=== PATIENT | male | born 1935 | race Native Hawaiian/Other Pacific Islander ===

== ENCOUNTER 2018-07-12 17:05 | Inpatient (IN) | payer MEDICARE, MEDICAID ==
[2018-07-12 18:35] LABS: BASO # 0.1 K/uL (0.0-0.2); EOS # 0.3 K/uL (0.0-0.7); EOS % 5.1 % (0.0-4.0); HEMOGLOBIN 12.5 g/dL (12.0-18.0); LYMPH # 1.9 K/uL (1.0-4.3); LYMPH % 27.9 % (20.0-40.0); MEAN CELL VOLUME 81.8 fL (80.0-94.0); MEAN CORPUSCULAR HEMOGLOBIN 25.7 pg (27.0-31.0); MEAN CORPUSCULAR HGB CONC 31.5 g/dL (33.0-37.0); MEAN PLATELET VOLUME 8.8 fL (7.2-11.7); MONO # 0.5 K/uL (0.0-0.8); MONO % 6.9 % (0.0-10.0); NEUT % 59.1 % (50.0-75.0); NRBC % 0.2 % (0.0-2.0); RBC 4.84 Mil/uL (4.40-5.90); RED CELL DISTRIBUTION WIDTH 13.1 % (11.5-14.5); WHITE BLOOD COUNT 6.7 K/uL (4.8-10.8)
[2018-07-12 18:44] LABS: URINE BILIRUBIN NEGATIVE (NEGATIVE); URINE BLOOD 1+ (NEGATIVE); URINE CLARITY Hazy (Clear); URINE COLOR Yellow (YELLOW); URINE GLUCOSE (UA) 2+ mg/dL (Normal); URINE LEUKOCYTE ESTERASE 2+ Leu/uL (Negative); URINE PROTEIN 1+ mg/dL (NEGATIVE); URINE UROBILINOGEN NORMAL mg/dL (0.2-1.0)
[2018-07-12 18:55] LABS: ALB/GLOB RATIO 1.3 (1.0-2.1); ALBUMIN 4.3 g/dL (3.5-5.0); ALT/SGPT 14 U/L (21-72); AST/SGOT 28 U/L (17-59); BLOOD UREA NITROGEN 20 mg/dL (9-20); CALCIUM 8.6 mg/dl (8.6-10.4); GFR NON-AFRICAN AMERICAN > 60
--- NOTE | 2018-07-12 19:03 | C.PDOC ---
History Of Present Illness 83 y/o male presents to the ED, sent in by Dr. King. Patient has a PMHx of BPH and is due for cystoscopy tomorrow with Dr. Meghann Verdugo. He was sent in for medical clearance including cardiac stress test and echo in the AM. Patient a ppears comfortable on arrival, has no complaints at all. Denies any chest pain or SOB but did complain of palpitations.. Time Seen by Provider: 07/12/18 18:27 Chief Complaint (Nursing): Male Genitourinary History Per: Patient History/Exam Limitations: no limitations Onset/Duration Of Symptoms: Hrs Current Symptoms Are (Timing): Still Present Past Medical History Reviewed: Historical Data, Nursing Documentation, Vital Signs Vital Signs: Last Vital Signs Temp 97.4 F L 07/12/18 17:23 Pulse 60 07/12/18 17:45 Resp 16 07/12/18 17:45 BP 133/70 07/12/18 17:45 Pulse Ox 99 07/12/18 17:45 - Medical History PMH: HTN, Hypercholesterolemia Family History: States: No Known Family Hx - Social History Hx Alcohol Use: No Hx Substance Use: No - Immunization History Hx Tetanus Toxoid Vaccination: No Hx Influenza Vaccination: No Hx Pneumococcal Vaccination: No Review Of Systems Constitutional: Negative for: Fever Cardiovascular: Negative for: Chest Pain Respiratory: Negative for: Cough, Shortness of Breath Gastrointestinal: Negative for: Abdominal Pain Neurological: Negative for: Weakness, Dizziness Physical Exam - Physical Exam Appears: Non-toxic, No Acute Distress Skin: Warm, Dry Head: Atraumatic, Normacephalic Eye(s): bilateral: Normal Inspection, PERRL, EOMI Nose: Normal Neck: Normal ROM Chest: Symmetrical Cardiovascular: Rhythm Regular, No Murmur Respiratory: Normal Breath Sounds, No Accessory Muscle Use, No Rhonchi, No Wheezing Gastrointestinal/Abdominal: Soft, No Tenderness, No Distention Extremity: Bilateral: Atraumatic, Normal Color And Temperature Neurological/Psych: Oriented x3, Normal Speech ED Course And Treatment - Laboratory Results Result Diagrams: 07/12/18 18:18 07/12/18 18:18 Lab Results: Total Bilirubin 0.7 mg/dL (0.2-1.3) 07/12/18 18:18 AST 28 U/L (17-59) 07/12/18 18:18 ALT 14 U/L (21-72) L 07/12/18 18:18 Alkaline Phosphatase 60 U/L (38-126) 07/12/18 18:18 Total Protein 7.6 g/dL (6.3-8.3) 07/12/18 18:18 Albumin 4.3 g/dL (3.5-5.0) 07/12/18 18:18 Globulin 3.2 gm/dL (2.2-3.9) 07/12/18 18:18 Albumin/Globulin Ratio 1.3 (1.0-2.1) 07/12/18 18:18 Urine Color Yellow (YELLOW) 07/12/18 18:18 Urine Clarity Hazy (Clear) 07/12/18 18:18 Urine pH 6.0 (5.0-8.0) 07/12/18 18:18 Ur Specific [place] 1.018 (1.003-1.030) 07/12/18 18:18 Urine Protein 1+ mg/dL (NEGATIVE) H 07/12/18 18:18 Urine Glucose (UA) 2+ mg/dL (Normal) H 07/12/18 18:18 Urine Ketones Negative mg/dL (NEGATIVE) 07/12/18 18:18 Urine Blood 1+ (NEGATIVE) H 07/12/18 18:18 Urine Nitrate Negative (NEGATIVE) 07/12/18 18:18 Urine Bilirubin Negative (NEGATIVE) 07/12/18 18:18 Urine Urobilinogen Normal mg/dL (0.2-1.0) 07/12/18 18:18 Ur Leukocyte Esterase 2+ Jg/uL (Negative) H 07/12/18 18:18 Urine WBC (Auto) 9 /hpf (0-5) H 07/12/18 18:18 Urine RBC (Auto) 7 /hpf (0-3) H 07/12/18 18:18 Lab Interpretation: Normal ECG: Interpreted By Me ECG Rhythm: Sinus Rhythm (with LVH) ECG Interpretation: No Acute Changes O2 Sat by Pulse Oximetry: 99 (RA) Pulse Ox Interpretation: Normal - Physician Consult Information Outcome Of Conversation: Case discussed with Dr King and Dr Do. Patient to be admitted for medical clearance and cardiac evaluation prior to surgery Medical Decision Making Medical Decision Making: Plan: Labs ordered for medical clearance. Disposition Counseled Patient/Family Regarding: Studies Performed - Disposition Disposition: HOSPITALIZED Disposition Time: 19:59 Condition: STABLE - POA Present On Arrival: None - Clinical Impression Clinical Impression: Palpitations, BPH (benign prostatic hyperplasia) - Scribe Statement The provider has reviewed the documentation as recorded by the Yulissaiblucas Blackburn Provider Attestation: All medical record entries made by the Jesus were at my direction and personally dictated by me. I have reviewed the chart and agree that the record accurately reflects my personal performance of the history, physical exam, medical decision making, and the department course for this patient. I have also personally directed, reviewed, and agree with the discharge instructions and disposition.
[2018-07-13 07:15] LABS: INR 1.2; PROTHROMBIN TIME 12.6 SECONDS (9.7-12.2)
[2018-07-13] MEDS: (Novolin R) Insulin Human Regular 100 units/ml vial SC SCH ×4 (08:09→22:07)
[2018-07-13] MEDS ORDERED: Caffeine Citrated **INJ** 20 MG/ML IV ONE (08:22)
[2018-07-13] MEDS: Enoxaparin 30 mg Syringe SC SCH (10:21)
--- NOTE | 2018-07-13 11:22 | CARD ---
APPROVED REPORT Date of service: 07/12/2018 EKG Measurement Heart [id number] <Conclusion> Normal sinus rhythm Voltage criteria for left ventricular hypertrophy Abnormal ECG
--- NOTE | 2018-07-13 15:16 | CARD ---
APPROVED REPORT Date of service: 07/13/2018 EXAM: Two-dimensional and M-mode echocardiogram with Doppler and color Doppler. Other Information Quality : GoodRhythm : INDICATION Palpitations 2D DIMENSIONS IVSd1.4 (0.7-1.1cm)LVDd3.9 (3.9-5.9cm) PWd1.3 (0.7-1.1cm)LA Naafqw72 (18-58mL) LVDs2.5 (2.5-4.0cm)FS (%) 36.6 % LVEF (%)67.0 (>50%)LVEF (Subramanian's)62.09 % M-Mode DIMENSIONS Left Atrium (MM)3.96 (2.5-4.0cm)IVSd0.92 (0.7-1.1cm) Aortic Root3.56 (2.2-3.7cm)LVDd4.88 (4.0-5.6cm) Aortic Cusp Exc.2.24 (1.5-2.0cm)PWd0.81 (0.7-1.1cm) FS (%) 38 %LVDs3.04 (2.0-3.8cm) LVEF (%)68 (>50%) Mitral Valve MV E Ovhmtwff68.7cm/sMV A Yoaganlp94.8cm/sE/A ratio0.7 TDI Lateral E' Peak V6.74cm/sMedial E' Peak V6.48cm/sE/Lateral E'8.4 E/Medial E'8.8 Tricuspid Valve TR Peak Yayysadr850yl/sTR Peak [id number] <Conclusion> normal size l,vra & RV. la is mildly dilated. mild concnetric lvh with normal wall motion,systolic & diastolic function with lvef of 60-65%. normal aortic,mitral,tv & pv. mild tr,trace mr,pi with normal pulmonary systolic pressures of 29 mm of hg. normal size aortic root & ivc. trivial posterior pericrdial effusion noted.
[2018-07-13 16:24] VITALS: RESP 20
--- NOTE | 2018-07-13 17:25 | CP.PCM.CON ---
History of Present Illness - History of Present Illness History of Present Illness: Pre Op cardiac risk assessment: Cystoscopy and related procedures and urological surgery under General Anaesthesia 83 y/o male Patient has a PMHx of BPH and is due for cystoscopy/Urological surgerry with Dr. Meghann Verdugo. He was sent in for medical clearance including cardiac stress test and echo in the AM. Patient appears comfortable on arrival, has no complaints at all. Denies any chest pain or SOB but did complain of palpitations.. Chief Complaint (Nursing): Male Genitourinary History Per: Patient History/Exam Limitations: no limitations Onset/Duration Of Symptoms: Hrs Current Symptoms Are (Timing): Still Present Past Medical History Reviewed: Historical Data, Nursing Documentation, Vital Signs Vital Signs: Last Vital Signs Temp 97.4 F L 07/12/18 17:23 Pulse 60 07/12/18 17:45 Resp 16 07/12/18 17:45 BP 133/70 07/12/18 17:45 Pulse Ox 99 07/12/18 17:45 - Medical History PMH: HTN, Hypercholesterolemia Family History: States: No Known Family Hx - Social History Hx Alcohol Use: No Hx Substance Use: No - Immunization History Hx Tetanus Toxoid Vaccination: No Hx Influenza Vaccination: No Hx Pneumococcal Vaccination: No Review Of Systems Constitutional: Negative for: Fever Cardiovascular: Negative for: Chest Pain Respiratory: Negative for: Cough, Shortness of Breath Gastrointestinal: Negative for: Abdominal Pain Neurological: Negative for: Weakness, Dizziness Physical Exam - Physical Exam Appears: Non-toxic, No Acute Distress Skin: Warm, Dry Head: Atraumatic, Normacephalic Eye(s): bilateral: Normal Inspection, PERRL, EOMI Nose: Normal Neck: Normal ROM Chest: Symmetrical Cardiovascular: Rhythm Regular, No Murmur Respiratory: Normal Breath Sounds, No Accessory Muscle Use, No Rhonchi, No Wheezing Gastrointestinal/Abdominal: Soft, No Tenderness, No Distention Extremity: Bilateral: Atraumatic, Normal Color And Temperature Neurological/Psych: Oriented x3, Normal Speech Past Patient History - Past Medical History & Family History Past Medical History?: No - Past Social History Smoking Status: Never Smoked - CARDIAC Hx Hypercholesterolemia: Yes Hx Hypertension: Yes - ENDOCRINE/METABOLIC Hx Diabetes Mellitus Type 2: Yes - MUSCULOSKELETAL/RHEUMATOLOGICAL Hx Falls: No - GENITOURINARY/GYNECOLOGICAL Other/Comment: Ritter catheter - PSYCHIATRIC Hx Substance Use: No - SURGICAL HISTORY Hx Surgeries: Yes Other/Comment: elbow tumor - ANESTHESIA Hx Anesthesia: Yes Hx Anesthesia Reactions: No Hx Malignant Hyperthermia: No Has any member of the family had a problem w/ anesthesia?: No Meds Allergies/Adverse Reactions: Allergies Allergy/AdvReac Type Severity Reaction Status Date / Time No Known Allergies Allergy Verified 07/12/18 17:28 - Medications Medications: Current Medications Amlodipine Besylate (Norvasc) 5 mg PO DAILY [facility] Atenolol (Tenormin) 50 mg PO DAILY [facility] Enoxaparin Sodium (Lovenox) 30 mg SC DAILY [facility] Last Admin: 07/13/18 10:21 Dose: Not Given Famotidine (Pepcid) 20 mg PO HS [facility] Last Admin: 07/13/18 10:21 Dose: Not Given Finasteride (Proscar) 5 mg PO DAILY [facility] Influenza Virus Vaccine (Flucelvax Quad [id number] Syr) 60 mcg IM .ONCE ONE Stop: 07/15/18 10:01 Insulin Human Regular (Novolin R) 0 unit SC [facility]; Protocol Last Admin: 07/13/18 11:57 Dose: Not Given Lisinopril (Zestril) 10 mg PO DAILY [facility] Pneumococcal Polyvalent Vaccine (Pneumovax 23 Vaccine) 0.5 ml IM .ONCE ONE Stop: 07/15/18 10:01 Rosuvastatin Calcium (Crestor) 10 mg PO HS [facility] Tamsulosin HCl (Flomax) 0.4 mg PO BID [facility] Last Admin: 07/13/18 10:21 Dose: Not Given Results - Vital Signs Recent Vital Signs: Last Vital Signs Temp 98.2 F 07/13/18 16:00 Pulse 64 07/13/18 16:00 Resp 20 07/13/18 16:00 BP 143/68 07/13/18 16:00 Pulse Ox 98 07/13/18 16:00 - Labs Result Diagrams: 07/12/18 18:18 07/12/18 18:18 Labs: Laboratory Results - last 24 hr 07/12/18 07/12/18 07/12/18 18:18 18:18 18:18 WBC 6.7 RBC 4.84 Hgb 12.5 Hct 39.6 MCV 81.8 MCH 25.7 L MCHC 31.5 L RDW 13.1 Plt Count 207 MPV 8.8 Neut % (Auto) 59.1 Lymph % (Auto) 27.9 [place] % (Auto) 6.9 Eos % (Auto) 5.1 H Baso % (Auto) 1.0 Neut # (Auto) 4.0 Lymph # (Auto) 1.9 [place] # (Auto) 0.5 Eos # (Auto) 0.3 Baso # (Auto) 0.1 PT INR APTT Sodium 138 Potassium 3.9 Chloride 101 Carbon Dioxide 27 Anion Gap 14 BUN 20 Creatinine 1.0 Est GFR ( Amer) > 60 Est GFR (Non-Af Amer) > 60 POC Glucose (mg/dL) Random Glucose 186 H Calcium 8.6 Total Bilirubin 0.7 AST 28 ALT 14 L Alkaline Phosphatase 60 Total Protein 7.6 Albumin 4.3 Globulin 3.2 Albumin/Globulin Ratio 1.3 Urine Color Yellow Urine Clarity Hazy Urine pH 6.0 Ur Specific [place] 1.018 Urine Protein 1+ H Urine Glucose (UA) 2+ H Urine Ketones Negative Urine Blood 1+ H Urine Nitrate Negative Urine Bilirubin Negative Urine Urobilinogen Normal Ur Leukocyte Esterase 2+ H Urine WBC (Auto) 9 H Urine RBC (Auto) 7 H 07/12/18 07/13/18 07/13/18 21:44 06:13 06:30 WBC RBC Hgb Hct MCV MCH MCHC RDW Plt Count MPV Neut % (Auto) Lymph % (Auto) [place] % (Auto) Eos % (Auto) Baso % (Auto) Neut # (Auto) Lymph # (Auto) [place] # (Auto) Eos # (Auto) Baso # (Auto) PT 12.6 H INR 1.2 APTT 30 Sodium Potassium Chloride Carbon Dioxide Anion Gap BUN Creatinine Est GFR ( Amer) Est GFR (Non-Af Amer) POC Glucose (mg/dL) 178 H 141 H Random Glucose Calcium Total Bilirubin AST ALT Alkaline Phosphatase Total Protein Albumin Globulin Albumin/Globulin Ratio Urine Color Urine Clarity Urine pH Ur Specific [place] Urine Protein Urine Glucose (UA) Urine Ketones Urine Blood Urine Nitrate Urine Bilirubin Urine Urobilinogen Ur Leukocyte Esterase Urine WBC (Auto) Urine RBC (Auto) 07/13/18 11:18 WBC RBC Hgb Hct MCV MCH MCHC RDW Plt Count MPV Neut % (Auto) Lymph % (Auto) [place] % (Auto) Eos % (Auto) Baso % (Auto) Neut # (Auto) Lymph # (Auto) [place] # (Auto) Eos # (Auto) Baso # (Auto) PT INR APTT Sodium Potassium Chloride Carbon Dioxide Anion Gap BUN Creatinine Est GFR ( Amer) Est GFR (Non-Af Amer) POC Glucose (mg/dL) 338 H Random Glucose Calcium Total Bilirubin AST ALT Alkaline Phosphatase Total Protein Albumin Globulin Albumin/Globulin Ratio Urine Color Urine Clarity Urine pH Ur Specific [place] Urine Protein Urine Glucose (UA) Urine Ketones Urine Blood Urine Nitrate Urine Bilirubin Urine Urobilinogen Ur Leukocyte Esterase Urine WBC (Auto) Urine RBC (Auto) Assessment & Plan - Assessment and Plan (Free Text) Assessment: ECHO: Normal EF and no valvular issues Stress test: Normal EKG: Normal This patient assessed as low to moderate cardiac risk for the above mentioned surgeries or procedures No Cardiac restriction for him to go for the surgery
--- NOTE | 2018-07-13 23:32 | CP.PCM.HP ---
Present on Admission - Present on Admission Any Indicators Present on Admission: No Past Patient History - Past Medical History & Family History Past Medical History?: No - Past Social History Smoking Status: Never Smoked - CARDIAC Hx Hypercholesterolemia: Yes Hx Hypertension: Yes - ENDOCRINE/METABOLIC Hx Diabetes Mellitus Type 2: Yes - MUSCULOSKELETAL/RHEUMATOLOGICAL Hx Falls: No - GENITOURINARY/GYNECOLOGICAL Other/Comment: Ritter catheter - PSYCHIATRIC Hx Substance Use: No - SURGICAL HISTORY Hx Surgeries: Yes Other/Comment: elbow tumor - ANESTHESIA Hx Anesthesia: Yes Hx Anesthesia Reactions: No Hx Malignant Hyperthermia: No Has any member of the family had a problem w/ anesthesia?: No Meds Allergies/Adverse Reactions: Allergies Allergy/AdvReac Type Severity Reaction Status Date / Time No Known Allergies Allergy Verified 07/12/18 17:28 Results - Vital Signs Recent Vital Signs: Last Vital Signs Temp 98.2 F 07/13/18 16:00 Pulse 64 07/13/18 16:00 Resp 20 07/13/18 16:00 BP 143/68 07/13/18 16:00 Pulse Ox 98 07/13/18 16:00 - Labs Result Diagrams: 07/12/18 18:18 07/12/18 18:18 Labs: Laboratory Results - last 24 hr 07/13/18 07/13/18 07/13/18 06:13 06:30 11:18 PT 12.6 H INR 1.2 APTT 30 POC Glucose (mg/dL) 141 H 338 H 07/13/18 07/13/18 17:27 20:57 PT INR APTT POC Glucose (mg/dL) 133 H 217 H
--- NOTE | 2018-07-14 05:07 | HP ---
CHIEF COMPLAINT: Palpitation, weakness, dizziness. 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 In his usual state of health, he is ambulatory and independent in activities of daily living. The patient needs to have a procedure as the patient is having palpitation, weakness, dizziness, and occasional chest pain. The patient is hospitalized for cardiac catheterization. The patient denies any nausea or vomiting. He has dyspnea on exertion and occasional chest pain and palpitation, weakness and dizziness. There is no history of polyuria, polydipsia, or polyphagia. There is no history of hematuria or pyuria. He denies any sneezing, itchy eyes, or itchy nose. He denies any hip pain, back pain, or leg pain. He has tingling, numbness, and paraesthesia of the feet. The patient has a Ritter catheter. ALLERGIES: UNKNOWN. CURRENT MEDICATIONS: At home, he is on insulin, Flomax, Pepcid, lisinopril, Lipitor, atenolol, finasteride, and Norvasc. SOCIAL HISTORY: He is ex-smoker, non EtOH user. PHYSICAL EXAMINATION: GENERAL: An elderly male, in no acute distress. VITAL SIGNS: Blood pressure 120/72, pulse 63, respiratory rate 20, temperature 98. SKIN: Senile turgor. No bruises. No purpura. No petechiae. No ecchymosis. HEENT: Atraumatic and normocephalic. Negative pallor. Negative jaundice. Extraocular movements are intact. NECK: Supple. No JVD. No lymph node. No thyromegaly. No carotid bruit. CHEST WALL: Bilateral symmetrical expansion. No tenderness. No deformity. LUNGS: Bilaterally clear. No rales. No rhonchi. CARDIOVASCULAR SYSTEM: PMI in the fifth intercostal space. S1 and S2 are regular. No heave. No thrill. ABDOMEN: Soft, nontender. Bowel sounds are positive. RECTAL: Enlarged prostate. EXTREMITIES: No clubbing, cyanosis, or edema. CENTRAL NERVOUS SYSTEM: Awake, alert, and oriented x3. Cranial nerves II through XII are normal. Power 5/5 x4. Plantars are downgoing. ASSESSMENT: 1. Rule out coronary artery disease. 2. Type 2 diabetes, on insulin. 3. Hypertension. 4. Hyperlipidemia. PLAN: Medical management. Cardiac catheterization. Monitor the patient. Jasper Do MD
[2018-07-14 08:05] VITALS: BP 114/67; PULSE 73; TEMP 97.9; O2SAT 98
[2018-07-14] MEDS: (Novolin R) Insulin Human Regular 100 units/ml vial SC SCH ×2 (08:33→12:33)
[2018-07-14] MEDS: Enoxaparin 30 mg Syringe SC SCH (09:15)
[2018-07-14] MEDS ORDERED: Influenza Vaccine 60 mcg/0.5 mL SYR (4YR UP) IM ONE (12:55)
[2018-07-14] MEDS ORDERED: Pneumococcal 23-Valent Vaccine IM ONE (12:56)
--- NOTE | 2018-07-14 18:07 | CP.PCM.PN ---
Subjective - Date & Time of Evaluation Date of Evaluation: 07/14/18 Time of Evaluation: 11:00 - Subjective Subjective: alert, ambulatory, no pain, no bleeding or distress. Objective - Vital Signs/Intake and Output Vital Signs (last 24 hours): Temp Pulse Resp BP Pulse Ox 97.9 F 73 20 114/67 98 07/14/18 07:00 07/14/18 07:00 07/14/18 07:00 07/14/18 07:00 07/14/18 07:00 Intake and Output: 07/14/18 07/14/18 06:59 18:59 Intake Total 200 Output Total 1500 Balance -1300 - Labs Labs: 07/12/18 18:18 07/12/18 18:18 PT 12.6 SECONDS (9.7-12.2) H 07/13/18 06:30 INR 1.2 07/13/18 06:30 APTT 30 SECONDS (21-34) 07/13/18 06:30 Assessment and Plan - Assessment and Plan (Free Text) Assessment: 83 year old male s/p cysto and fernandez placement admitted, cardiac clearence done by DR King. Patient is alert and orientedx3, no acute pain or distress. Discussed with DR Do, plan to discharge home with fernandez catheter, advised to call DR Verdugo and follow up in the office.
--- NOTE | 2018-07-14 23:08 | CP.PCM.DIS ---
Provider - Provider Date of Admission: 07/12/18 19:57 Attending physician: Jasper Do MD Consults: 07/12/18 22:48 Cardiology Consult Routine Comment: Consulting Provider: Alvaro King Consulting Physician: Alvaro King Reason for Consult: chest pain Time Spent in preparation of Discharge (in minutes): 25 Hospital Course - Lab Results Lab Results: Micro Results 07/12/18 18:18 Urine,Catheterized Urine Culture - Final No Growth (<1,000 CFU/ML) Most Recent Lab Values WBC 6.7 K/uL (4.8-10.8) 07/12/18 18:18 RBC 4.84 Mil/uL (4.40-5.90) 07/12/18 18:18 Hgb 12.5 g/dL (12.0-18.0) 07/12/18 18:18 Hct 39.6 % (35.0-51.0) 07/12/18 18:18 MCV 81.8 fL (80.0-94.0) 07/12/18 18:18 MCH 25.7 pg (27.0-31.0) L 07/12/18 18:18 MCHC 31.5 g/dL (33.0-37.0) L 07/12/18 18:18 RDW 13.1 % (11.5-14.5) 07/12/18 18:18 Plt Count 207 K/uL (130-400) 07/12/18 18:18 MPV 8.8 fL (7.2-11.7) 07/12/18 18:18 Neut % (Auto) 59.1 % (50.0-75.0) 07/12/18 18:18 Lymph % (Auto) 27.9 % (20.0-40.0) 07/12/18 18:18 [place] % (Auto) 6.9 % (0.0-10.0) 07/12/18 18:18 Eos % (Auto) 5.1 % (0.0-4.0) H 07/12/18 18:18 Baso % (Auto) 1.0 % (0.0-2.0) 07/12/18 18:18 Neut # (Auto) 4.0 K/uL (1.8-7.0) 07/12/18 18:18 Lymph # (Auto) 1.9 K/uL (1.0-4.3) 07/12/18 18:18 [place] # (Auto) 0.5 K/uL (0.0-0.8) 07/12/18 18:18 Eos # (Auto) 0.3 K/uL (0.0-0.7) 07/12/18 18:18 Baso # (Auto) 0.1 K/uL (0.0-0.2) 07/12/18 18:18 PT 12.6 SECONDS (9.7-12.2) H 07/13/18 06:30 INR 1.2 07/13/18 06:30 APTT 30 SECONDS (21-34) 07/13/18 06:30 Sodium 138 mmol/L (132-148) 07/12/18 18:18 Potassium 3.9 mmol/L (3.6-5.2) 07/12/18 18:18 Chloride 101 mmol/L (98-107) 07/12/18 18:18 Carbon Dioxide 27 mmol/L (22-30) 07/12/18 18:18 Anion Gap 14 (10-20) 07/12/18 18:18 BUN 20 mg/dL (9-20) 07/12/18 18:18 Creatinine 1.0 mg/dL (0.8-1.5) 07/12/18 18:18 Est GFR ( Amer) > 60 07/12/18 18:18 Est GFR (Non-Af Amer) > 60 07/12/18 18:18 POC Glucose (mg/dL) 173 mg/dL (65-110) H 07/14/18 11:08 Random Glucose 186 mg/dL (75-110) H 07/12/18 18:18 Calcium 8.6 mg/dl (8.6-10.4) 07/12/18 18:18 Total Bilirubin 0.7 mg/dL (0.2-1.3) 07/12/18 18:18 AST 28 U/L (17-59) 07/12/18 18:18 ALT 14 U/L (21-72) L 07/12/18 18:18 Alkaline Phosphatase 60 U/L (38-126) 07/12/18 18:18 Total Protein 7.6 g/dL (6.3-8.3) 07/12/18 18:18 Albumin 4.3 g/dL (3.5-5.0) 07/12/18 18:18 Globulin 3.2 gm/dL (2.2-3.9) 07/12/18 18:18 Albumin/Globulin Ratio 1.3 (1.0-2.1) 07/12/18 18:18 Urine Color Yellow (YELLOW) 07/12/18 18:18 Urine Clarity Hazy (Clear) 07/12/18 18:18 Urine pH 6.0 (5.0-8.0) 07/12/18 18:18 Ur Specific [place] 1.018 (1.003-1.030) 07/12/18 18:18 Urine Protein 1+ mg/dL (NEGATIVE) H 07/12/18 18:18 Urine Glucose (UA) 2+ mg/dL (Normal) H 07/12/18 18:18 Urine Ketones Negative mg/dL (NEGATIVE) 07/12/18 18:18 Urine Blood 1+ (NEGATIVE) H 07/12/18 18:18 Urine Nitrate Negative (NEGATIVE) 07/12/18 18:18 Urine Bilirubin Negative (NEGATIVE) 07/12/18 18:18 Urine Urobilinogen Normal mg/dL (0.2-1.0) 07/12/18 18:18 Ur Leukocyte Esterase 2+ Jg/uL (Negative) H 07/12/18 18:18 Urine WBC (Auto) 9 /hpf (0-5) H 07/12/18 18:18 Urine RBC (Auto) 7 /hpf (0-3) H 07/12/18 18:18 Discharge Plan - Follow Up Plan Condition: STABLE Disposition: HOME/ ROUTINE Instructions: Heart Healthy Diet, How to Care for Your Fernandez Catheter, Male, Benign Prostatic Hyperplasia (Enlarged Prostate) (DC), Fernandez Catheter, Male, Palpitations (DC) Additional Instructions: follow up with DR Verdugo in the office, patient is cleared by DR King for the urology procedure follow up with PMD in 1 week please teach to use leg bag and fernandez care/ will be discharge with fernandez Referrals: Alvaro King MD [Staff Provider] - Jasper Do MD [Staff Provider] - 07/21/18 12:00 pm Hugo Verdugo MD [Staff Provider] -
[2018-07-15] MEDS ORDERED: Pneumococcal 23-Valent Vaccine IM ONE (10:00)
[2018-07-15] MEDS ORDERED: Influenza Vaccine 60 mcg/0.5 mL SYR (4YR UP) IM ONE (10:00)
--- NOTE | 2018-07-16 19:39 | DS ---
DISCHARGE DIAGNOSES: Noncoronary chest pain, diabetes, hypertension, obstructive uropathy with benign prostatic hypertrophy. HOSPITAL COURSE: This is an 83-year-old [place] male with a history of diabetes, hypertension and hyperlipidemia. The patient has obstructive uropathy with prostatic enlargement. He has a Ritter and he is for surgery. The patient underwent cardiac cath. Cardiac cath was negative . VITAL SIGNS: Blood pressure 114/67, pulse 73, respiratory rate 20, temperature 97.9. LABORATORY DATA: Glucose 217 and 155. WBC 8.7, hemoglobin 12.5, hematocrit 39.6, platelets 207. Chemistry is benign. BUN 24, creatinine 1. CONDITION UPON DISCHARGE: Stable. Jasper Do MD
--- NOTE | 2018-07-17 09:11 | CARD ---
APPROVED REPORT Date of service: 07/13/2018 Protocol: LEXISCAN Test Type: LEXISCAN Test Indications: CHEST PAIN Target HR: 138 bpm Resting ECG: NSR W/ NS ST T CHANGES Resting Heart Rate: 68 bpm Resting Blood Pressure: 140/80mmHg submaximum (85%): 117 bpm TEST SUMMARY PREINFSNHYPERV.06:[id number]/80.0. INFUSIONDOSE 100:[id number]/80.0. [id number]/80.0. PROCEDURE Pharmacologic stress testing was performed using 0.4mg per 5ml of regadenoson given intravenously over 7-10 seconds. POST EXERCISE Reason for Termination: Protocol Completed Target HR: No Max HR: 71 bpm 68% of Maximum Predicted HR: 138 bpm Exercise duration: 00:30 min:sec, 0 Stage Exercise capacity: 1.0METs Max Blood Pressure: 140/80mmHg Blood Pressure response to exercise: normal resting BP - appropriate response Heart Rate response to exercise: appropriate Chest Pain: No, none Angina index: 0 Arrhythmia: No, none ST Change: No, none Deviation: 0 mm INTERPRETATION Stress EKG Conclusion: NEGATIVE LEXISCAN STRESS TEST NORMAL BP RESPONSE TO LEXISCAN NUCLEAR STUDIES TO BE READ SEPARATELY EXAM: Myocardial Perfusion STRESS/REST Imaging Protocol The imaging protocol used to acquire images was Stress Tc-99m/rest Tc-99m 1 day Rest Spect myocardial perfusion imaging was performed in supine position 45 minutes following the injection of 32.7 mCi of Tc-99 Myoview. Gated Stress Spect was performed 45 minutes after intravenous 12.8 mCiTc-99 Myoview injection. The images were gated to evaluate regional wall motion and calculate ventricular ejection fraction.Images were reconstructed using backfilter projection method in short horizontal and verticle long axis. Spect slices were generated. RESTING DATA EDV59.59yyIK6.20L/min ESV11.00mlMyocardial Uibq264.00g Av. Heart Rate67.00bpm EF81.00% STRESS DATA EDV58.52jvUQ0.60L/min ESV8.00mlMyocardial Mass96.00g EF86.00% Regional WT score at stress:0.00 Regional WM score at stress:0.00 Summed WT score at stress:0.00 Av. Heart Rate71.00bpmSummed WM score at stress:0.00 LV Perf. Quant 17 Seg. SSS3.00 17 Seg. SRS3.00 17 Seg. SDS0.00 Stress Defect Extent (% LAD)0.00Rest Defect Extent (% LAD)0.00Rev. Defect Extent (% LAD)0.00 Stress Defect Extent (% LCX)40.00Rest Defect Extent (% LCX)33.80Rev. Defect Extent (% LCX)0.00 Stress Defect Extent (% RCA)0.00Rest Defect Extent (% RCA)0.00Rev. Defect Extent (% RCA)0.00 Stress Defect Extent (% CHRISTEL)7.00Rest Defect Extent (% CHRISTEL)5.90Rev. Defect Extent (% CHRISTEL)0.00 IMPRESSION Normal Myocardial Perfusion exercise stress study Left Ventricle LV Function:Left ventricle systolic function is normal. The Ejection Fraction is >70%. Regional Wall Motion:There is normal left ventricular wall motion. Metabolism/Perfusion Defects: There is no stress-induced ischemia noted. There are no perfusion/metabolism defects. Conclusion 1. There is no stress-induced ischemia noted. 2. Left ventricle systolic function is normal. 3. The Ejection Fraction is >70%.
== END 2018-07-14 13:27 | disposition home or self-care (01) | DRG 726 ==
LOC: C.ER 17:05 → C.9E 19:57 → C.6T 20:37
PROVIDERS: ADMIT Internal Medicine; ATTEND Internal Medicine
DX: N40.1 Benign prostatic hyperplasia with lower urinary tract symptoms (principal); N13.8 Other obstructive and reflux uropathy; I25.10 Atherosclerotic heart disease of native coronary artery without angina pectoris; R00.2 Palpitations; E11.9 Type 2 diabetes mellitus without complications; E78.00 Pure hypercholesterolemia, unspecified; I10 Essential (primary) hypertension; E78.5 Hyperlipidemia, unspecified; Z79.4 Long term (current) use of insulin

== ENCOUNTER 2018-07-21 08:54 | Inpatient (IN) | payer MEDICARE, MEDICAID ==
[2018-07-21] MEDS ORDERED: cefTRIAXone 1 gm 1 GM/100 ML BAG IVPB ONE (12:01)
[2018-07-21] MEDS ORDERED: Lidocaine 2% Jelly (Uro-Jet) ONE (12:01)
[2018-07-21] MEDS ORDERED: Iohexol 240 (50 ml) ONE (12:01)
[2018-07-21] MEDS ORDERED: Iohexol 240 200 ML ONE (12:06)
[2018-07-21] MEDS ORDERED: Propofol 10 mg/ml Inj (20 ML) ONE (12:22)
[2018-07-21] MEDS ORDERED: Gentamicin 80 mg in 0.9% NS 160 MG/200 ML BAG IVPB ONE (12:27)
[2018-07-21] MEDS ORDERED: Lidocaine Hydrochloride 5 ML INJ ONE (12:40)
--- NOTE | 2018-07-21 14:15 | PCM.SURG1 ---
Surgeon's Initial Post Op Note - Surgeon's Notes Surgeon: Richard Verdugo Engineer Specialist: none Type of Anesthesia: General LMA Pre-Operative Diagnosis: urinary retention. BPH Operative Findings: same Post-Operative Diagnosis: same Operation Performed: cmg. cgm. cysto. TURP Specimen/Specimens Removed: urine. prostate Estimated Blood Loss: EBL {In ML}: 120 Blood Products Given: N/A Post-Op Condition: Good Date of Surgery/Procedure: 07/21/18 Time of Surgery/Procedure: 02:05
[2018-07-21] MEDS ORDERED: HYDROmorphone 0.5 mg/0.5 ml ISec IVP PRN (14:51)
--- NOTE | 2018-07-21 17:00 | RAD ---
Date of service: 07/21/2018 PROCEDURE: Intraoperative fluoroscopy HISTORY: URINARY RETENTION COMPARISON: Not available TECHNIQUE: Intraoperative fluoroscopy was provided for cystography. Total time of fluoroscopy was 10.7 sec. Cumulative dose was 0.12238 mGy meters squared. FINDINGS: Multiple fluoroscopic spot images are submitted. Films are on file for review. IMPRESSION: Fluoroscopy provided.
[2018-07-21 18:54] VITALS: RESP 20
[2018-07-21] MEDS ORDERED: Oxycodone/Acetaminophen 5/325 mg Tab PO PRN (23:50)
[2018-07-22 07:49] LABS: HEMOGLOBIN 12.4 g/dL (12.0-18.0); MEAN CORPUSCULAR HGB CONC 32.9 g/dL (33.0-37.0); MEAN PLATELET VOLUME 8.8 fL (7.2-11.7); RBC 4.59 Mil/uL (4.40-5.90); RED CELL DISTRIBUTION WIDTH 13.5 % (11.5-14.5)
[2018-07-22 07:55] LABS: WHITE BLOOD COUNT 12.1 K/uL (4.8-10.8)
[2018-07-22 08:03] LABS: BLOOD UREA NITROGEN 14 mg/dL (9-20); CALCIUM 8.6 mg/dl (8.6-10.4); GFR NON-AFRICAN AMERICAN > 60
[2018-07-22] MEDS ORDERED: Glucagon Recombinant 1 mg Inj IM PRN (08:53)
[2018-07-22] MEDS ORDERED: Dextrose 50% SYRINGE Inj (50 ml) IV PRN (08:53)
[2018-07-22] MEDS: cefTRIAXone IV 1 gm in Dextros 50 ML IVPB SCH (10:07)
[2018-07-22] MEDS: (Novolin R) Insulin Human Regular 100 units/ml vial SC SCH ×2 (12:34→21:25)
[2018-07-23] MEDS: (Novolin R) Insulin Human Regular 100 units/ml vial SC SCH ×5 (08:40→21:23)
[2018-07-23] MEDS: cefTRIAXone IV 1 gm in Dextros 50 ML IVPB SCH (10:40)
[2018-07-23] MEDS: AMPicillin 1 GM in Sodium Chloride 0.9% 100 ML IVPB SCH ×3 (13:53→21:17)
--- NOTE | 2018-07-23 22:17 | CP.PCM.HP ---
Present on Admission - Present on Admission Any Indicators Present on Admission: No Past Patient History - Past Medical History & Family History Past Medical History?: Yes - Past Social History Smoking Status: Never Smoked - CARDIAC Hx Cardiac Disorders: Yes Hx Hypercholesterolemia: Yes Hx Hypertension: Yes - ENDOCRINE/METABOLIC Hx Endocrine Disorders: Yes Hx Diabetes Mellitus Type 2: Yes - MUSCULOSKELETAL/RHEUMATOLOGICAL Hx Falls: No - GENITOURINARY/GYNECOLOGICAL Hx Genitourinary Disorders: Yes Hx Prostate Problems: Yes (BPH) Other/Comment: HX: INSERTION URINARY CATHETER FOR RETENTION - PSYCHIATRIC Hx Substance Use: No - SURGICAL HISTORY Hx Surgeries: Yes Other/Comment: HX: LEFT BENIGN ELBOW TUMOR REMOVED - ANESTHESIA Hx Anesthesia: Yes Hx Anesthesia Reactions: No Hx Malignant Hyperthermia: No Meds Allergies/Adverse Reactions: Allergies Allergy/AdvReac Type Severity Reaction Status Date / Time No Known Allergies Allergy Verified 07/12/18 17:28 Results - Vital Signs Recent Vital Signs: Last Vital Signs Temp 99 F 07/23/18 15:45 Pulse 71 07/23/18 15:45 Resp 20 07/23/18 15:45 BP 107/56 L 07/23/18 15:45 Pulse Ox 94 L 07/23/18 15:45 - Labs Result Diagrams: 07/22/18 07:40 07/22/18 07:40 Labs: Laboratory Results - last 24 hr 07/22/18 07/23/18 07/23/18 13:57 06:36 11:53 POC Glucose (mg/dL) 191 H 184 H Hemoglobin A1c 10.1 H
--- NOTE | 2018-07-23 22:18 | CP.PCM.PN ---
Subjective - Date & Time of Evaluation Date of Evaluation: 07/23/18 Time of Evaluation: 13:00 - Subjective Subjective: dictated Objective - Vital Signs/Intake and Output Vital Signs (last 24 hours): Temp Pulse Resp BP Pulse Ox 99 F 71 20 107/56 L 94 L 07/23/18 15:45 07/23/18 15:45 07/23/18 15:45 07/23/18 15:45 07/23/18 15:45 Intake and Output: 07/23/18 07/24/18 18:59 06:59 Intake Total 150 Output Total 1999 Balance -1850 - Medications Medications: Current Medications Amlodipine Besylate (Norvasc) 5 mg PO DAILY [facility] Last Admin: 07/23/18 10:57 Dose: 5 mg Atenolol (Tenormin) 50 mg PO DAILY [facility] Last Admin: 07/23/18 10:39 Dose: 50 mg Dextrose (Dextrose 50% Inj) 0 ml IV STAT PRN; Protocol PRN Reason: Hypoglycemia Protocol Dextrose (Glutose 15) 0 gm PO ONCE PRN; Protocol PRN Reason: Hypoglycemia Protocol Docusate Sodium (Colace) 100 mg PO TID [facility] Last Admin: 07/23/18 17:52 Dose: 100 mg Famotidine (Pepcid) 20 mg PO DAILY [facility] Last Admin: 07/23/18 10:39 Dose: 20 mg Finasteride (Proscar) 5 mg PO DAILY [facility] Last Admin: 07/23/18 10:39 Dose: 5 mg Glucagon (Glucagen Diagnostic Kit) 0 mg IM STAT PRN; Protocol PRN Reason: Hypoglycemia Protocol Dextrose (Dextrose 5% In Water 1000 Ml) 1,000 mls @ 0 mls/hr IV .Q0M PRN; Protocol PRN Reason: Hypoglycemia Protocol Ampicillin 1 gm/ Sodium (Chloride) 100 mls @ 100 mls/hr IVPB Q4H [facility]; Protocol Last Admin: 07/23/18 21:17 Dose: 100 mls/hr Influenza Virus Vaccine (Flucelvax Quad [id number] Syr) 60 mcg IM .ONCE ONE Stop: 07/24/18 14:01 Insulin Human Regular (Novolin R) 0 unit SC ACHS [facility]; Protocol Last Admin: 07/23/18 21:23 Dose: Not Given Lisinopril (Zestril) 10 mg PO DAILY [facility] Last Admin: 07/23/18 10:39 Dose: 10 mg Oxycodone/Acetaminophen (Percocet 5/325 Mg Tab) 1 tab PO Q4H PRN PRN Reason: Pain, moderate (4-7) Stop: 07/24/18 23:51 Last Admin: 07/22/18 10:17 Dose: 1 tab Pneumococcal Polyvalent Vaccine (Pneumovax 23 Vaccine) 0.5 ml IM .ONCE ONE Stop: 07/24/18 14:01 Rosuvastatin Calcium (Crestor) 10 mg PO HS [facility] Last Admin: 07/23/18 21:17 Dose: 10 mg Tamsulosin HCl (Flomax) 0.4 mg PO DAILY [facility] Last Admin: 07/23/18 10:39 Dose: 0.4 mg - Labs Labs: 07/22/18 07:40 07/22/18 07:40
--- NOTE | 2018-07-23 22:20 | CON ---
DATE: 07/21/2018 UROLOGY CONSULTATION REQUESTED BY: Jasper Do MD REASON FOR CONSULTATION: Urinary retention. HISTORY OF PRESENT ILLNESS: The patient is an 83-year-old male with urinary retention. The patient is in otherwise fair health. The patient has history of hypertension. The patient has history of insulin-dependent diabetes mellitus. The patient has history of urinary retention in May. He was hospitalized at [facility] for urinary retention and urinary tract infection. The patient previously was prescribed tamsulosin and finasteride. However, he did not take his medications regularly. Since May, he has taken the medications including tamsulosin 2 times daily and finasteride. The patient had trial of voiding. He subsequently failed a trial of voiding, and he developed urinary retention. The patient subsequently had a urodynamic evaluation. The patient is now admitted for evaluation and therapy. The patient previously was scheduled for outpatient cystoscopy. However, the cystoscopy was postponed pending cardiac evaluation as requested by the anesthesiologist. Last week, the patient underwent cardiology evaluation and was found to be cleared for this procedure, as per his j2ee android developer, Dr. Sabrina King. No recent fever or rigors. No chest pain. No shortness of breath. SOCIAL HISTORY: The patient lives with his and children. The patient does not smoke. The patient was born in [place]. FAMILY HISTORY: There is no family history of prostate cancer. MEDICATIONS: The patient's medications have included atenolol, amlodipine, atorvastatin, finasteride, tamsulosin, insulin, and famotidine. PAST SURGICAL HISTORY: The patient's past surgical history includes left elbow surgery for removal of a benign growth. REVIEW OF SYSTEMS: The patient reports good appetite. No recent weight loss. The patient has normal bowel movements. No blackout, seizure, or strokes. ALLERGIES: NO ALLERGIES. PHYSICAL EXAMINATION: GENERAL: The patient is a well-developed, well-nourished elderly male. The patient is awake and alert. ABDOMEN: Soft, nontender, nondistended. No mass or organomegaly. GENITOURINARY: The urine is cat via the Ritter catheter. Genitalia without inflammation. IMPRESSION: 1. Urinary retention. 2. Prostatic enlargement. 3. Diabetes mellitus. 4. Hypertension. RECOMMENDATIONS: Plan for cystoscopy. Cystogram. Cystometrogram. Possible TURP. Nature of the procedure including risks, benefits, and alternatives have been explained to the patient and his son. Meghann MD Lucina cc: Jasper Do MD
--- NOTE | 2018-07-23 22:29 | OP ---
PROCEDURE DATE: 07/21/2018 UROLOGY OPERATIVE REPORT PREOPERATIVE DIAGNOSES: Urinary retention. Prostatic enlargement. POSTOPERATIVE DIAGNOSES: Urinary retention. Prostatic enlargement. PROCEDURES: Cystometrogram. Cystogram. Cystoscopy. Transurethral resection of prostate. OPERATING SURGEON: Meghann Verdugo MD. DESCRIPTION OF PROCEDURE: Procedure as follows: The patient received perioperative antibiotics. The patient was in supine position. A simple cystometrogram was performed using water manometry. The bladder was filled in increments of 30 mL. Bladder pressure was measured. The patient had the sensation to void at a volume of 90 mL. He developed an increased detrusor pressure greater than 30 cm of water out of 150 mL. Iodinated contrast was instilled into the bladder. Fluoroscopic views were obtained in PA and oblique views. The cystogram demonstrated no evidence of vesicoureteral reflux. There was elevation of the bladder base consistent with prostatic hypertrophy. There was a large intravesical filling defect at the bladder base consistent with prostatic hypertrophy. General anesthesia was administered via laryngeal mask airway. The patient was placed in lithotomy position. The genitalia prepped and draped sterilely. Perioperative antibiotics had been administered. A 22-British cystoscope sheath was introduced under direct vision. Urethra, prostate, and bladder were inspected. FINDINGS: There was noted to be no stricture of the anterior urethra. There was marked prostatic hypertrophy. The prostatic urethra was approximately 6 cm in length. There was a large intravesical middle lobe. There was marked bladder trabeculation. Initially, the ureteral orifices could not be identified due to middle lobe hypertrophy. The cystoscope and sheath were removed. A 26-British continuous flow resectoscope sheath was introduced under direct vision using the visual obturator. Resection of the prostate was performed as follows. The middle lobe was resected. The ureteral orifices could subsequently be identified and was spared. There was a large middle lobe. Subsequently, the anterior roof tissue and the left lateral lobe were resected. The floor tissue was resected as well. Hemostasis was achieved after each section of resection as well as during the resection. The prostate was noted to be vascular. The prostatic chips were removed using the Microvasive evacuator at various points during the resection. The resection included the middle lobe and the left lateral lobe. The right lateral lobe was not resected during this setting. Hemostasis was complete. The ureteral orifices were intact. There were no residual prostatic chips. The resectoscope and sheath were removed. A Ritter catheter was inserted. Bladder irrigation was clear with mild traction applied. The patient was returned to the supine position. The patient was transferred to the recovery room in satisfactory condition. Meghann MD Lucina cc: Jasper Do MD
[2018-07-24] MEDS: AMPicillin 1 GM in Sodium Chloride 0.9% 100 ML IVPB SCH ×5 (01:23→17:50)
--- NOTE | 2018-07-24 02:00 | PN ---
DATE: 07/23/2018 SUBJECTIVE: The patient's urine cultures are positive for Enterococcus faecalis, sensitive to ampicillin. The patient is afebrile. PHYSICAL EXAMINATION: VITAL SIGNS: Blood pressure is 107/56, pulse 71, respiratory rate 20, temperature 99. LUNGS: Clear. ABDOMEN: Soft. CENTRAL NERVOUS SYSTEM: Awake, alert, and oriented x3. ASSESSMENT: 1. Urinary tract infection. 2. Obstructive uropathy, status post cystoscopy. 3. Type 2 diabetes. 4. Hypertension. PLAN: Medical management. Monitor the patient. Jasper Do MD
--- NOTE | 2018-07-24 05:43 | HP ---
CHIEF COMPLAINT: Status post surgery. HISTORY OF PRESENT ILLNESS: This is an 83-year-old Pakistani male with history of type 2 diabetes, hypertension, hyperlipidemia, obstructive uropathy, and the patient underwent urological evaluation, and postoperatively, the patient is admitted. The patient at this point has some hematuria. He has some pain in his Ritter's catheter site with blood-tinged urine. He denies any fever or chills. He has rectal pain. He has perineal pain. He has generalized weakness. He denies any chills or rigor. He denies any nausea or vomiting. He denies any history of polyuria or polydipsia. He had frequency of urination, hesitancy, and hematuria. PAST MEDICAL HISTORY: Type 2 diabetes, hypertension, and hyperlipidemia. SOCIAL HISTORY: Ex-smoker, non-ETOH user. CURRENT MEDICATIONS: At home, he is on Humulin R, Tenormin, Flomax, Zestril, Proscar, Pepcid, Norvasc, and Lipitor. PHYSICAL EXAMINATION: GENERAL: An elderly male. He is complaining of some discharge in the Ritter's catheter site with hematuria. VITAL SIGNS: Blood pressure 107/56, pulse 71, respiratory rate 20, and temperature 99. SKIN: Senile turgor. No bruises. No purpura. HEENT: Atraumatic and normocephalic. Negative pallor. Negative jaundice. Extraocular movements are intact. NECK: Supple. No JVD. No lymph nodes. No thyromegaly. CHEST WALL: Bilateral symmetrical expansion. LUNGS: Clear. CARDIOVASCULAR SYSTEM: S1, S2, regular. ABDOMEN: Soft. The patient has Ritter. EXTREMITIES: No clubbing, cyanosis, or edema. CENTRAL NERVOUS SYSTEM: Awake, alert, and oriented x3. ASSESSMENT: 1. Status post cystoscopy. 2. Type 2 diabetes. 3. Hypertension. 4. Obstructive uropathy. PLAN: Admit. Detailed orders are written. Seen and examined. Jasper Do MD
[2018-07-24] MEDS: (Novolin R) Insulin Human Regular 100 units/ml vial SC SCH ×3 (08:28→17:51)
[2018-07-24] MEDS ORDERED: Magnesium Hydroxide Susp 30 ml UD PO ONE (12:38)
[2018-07-24] MEDS ORDERED: Influenza Vaccine 60 mcg/0.5 mL SYR (4YR UP) IM ONE (14:00)
[2018-07-24] MEDS ORDERED: Pneumococcal 23-Valent Vaccine IM ONE (14:00)
[2018-07-24 14:56] LABS: BASO # 0.1 K/uL (0.0-0.2); BASO % 0.7 % (0.0-2.0); EOS # 0.3 K/uL (0.0-0.7); EOS % 3.4 % (0.0-4.0); HEMOGLOBIN 11.5 g/dL (12.0-18.0); LYMPH # 1.8 K/uL (1.0-4.3); LYMPH % 18.4 % (20.0-40.0); MEAN CELL VOLUME 82.2 fL (80.0-94.0); MEAN CORPUSCULAR HGB CONC 32.9 g/dL (33.0-37.0); MEAN PLATELET VOLUME 9.1 fL (7.2-11.7); MONO # 0.7 K/uL (0.0-0.8); MONO % 7.6 % (0.0-10.0); NEUT # 6.9 K/uL (1.8-7.0); NEUT % 69.9 % (50.0-75.0); RBC 4.25 Mil/uL (4.40-5.90); RED CELL DISTRIBUTION WIDTH 13.6 % (11.5-14.5); WHITE BLOOD COUNT 9.8 K/uL (4.8-10.8)
[2018-07-24 15:08] LABS: BLOOD UREA NITROGEN 15 mg/dL (9-20); CALCIUM 8.2 mg/dl (8.6-10.4); GFR NON-AFRICAN AMERICAN > 60
[2018-07-24 16:24] VITALS: BP 125/69; PULSE 73; TEMP 98.4; O2SAT 98
--- NOTE | 2018-07-24 17:19 | CP.PCM.PN ---
Subjective - Date & Time of Evaluation Date of Evaluation: 07/24/18 Time of Evaluation: 13:00 - Subjective Subjective: patient seen today, comforatable, denies any abdominal pain N/V/, fernandez in draining clear urine Vss and labs reviewed - stable , a febrile Objective - Vital Signs/Intake and Output Vital Signs (last 24 hours): Temp Pulse Resp BP Pulse Ox 98.4 F 73 20 125/69 98 07/24/18 16:00 07/24/18 16:00 07/24/18 16:00 07/24/18 16:00 07/24/18 16:00 Intake and Output: 07/24/18 07/24/18 06:59 18:59 Intake Total 1050 Output Total 1100 Balance -50 - Medications Medications: Current Medications Atenolol (Tenormin) 50 mg PO DAILY [facility]S AT [facility] Last Admin: 07/24/18 10:07 Dose: 50 mg Dextrose (Dextrose 50% Inj) 0 ml IV STAT PRN; Protocol PRN Reason: Hypoglycemia Protocol Dextrose (Glutose 15) 0 gm PO ONCE PRN; Protocol PRN Reason: Hypoglycemia Protocol Docusate Sodium (Colace) 100 mg PO TID [facility] 234 B[facility]S AT [facility] Last Admin: 07/24/18 12:59 Dose: 100 mg Famotidine (Pepcid) 20 mg PO DAILY [facility] 234 B[facility]S AT [facility] Last Admin: 07/24/18 10:07 Dose: 20 mg Finasteride (Proscar) 5 mg PO DAILY [facility] 234 B[facility]S AT [facility] Last Admin: 07/24/18 10:07 Dose: 5 mg Glucagon (Glucagen Diagnostic Kit) 0 mg IM STAT PRN; Protocol PRN Reason: Hypoglycemia Protocol Dextrose (Dextrose 5% In Water 1000 Ml) 1,000 mls @ 0 mls/hr IV .Q0M PRN; Protocol PRN Reason: Hypoglycemia Protocol Ampicillin 1 gm/ Sodium (Chloride) 100 mls @ 100 mls/hr IVPB Q4H [facility] 234 B[facility]S [facility]; Protocol Last Admin: 07/24/18 12:15 Dose: 100 mls/hr Insulin Human Regular (Novolin R) 0 unit SC ACHS [facility] 234 BEDS AT [facility]; Protocol Last Admin: 07/24/18 12:30 Dose: 6 u Lisinopril (Zestril) 10 mg PO DAILY [facility] 234 BEDS AT [facility] Last Admin: 07/24/18 10:07 Dose: 10 mg Oxycodone/Acetaminophen (Percocet 5/325 Mg Tab) 1 tab PO Q4H PRN PRN Reason: Pain, moderate (4-7) Stop: 07/24/18 23:51 Last Admin: 07/22/18 10:17 Dose: 1 tab Rosuvastatin Calcium (Crestor) 10 mg PO HS [facility] 234 BEDS AT [facility] Last Admin: 07/23/18 21:17 Dose: 10 mg Tamsulosin HCl (Flomax) 0.4 mg PO DAILY [facility] Last Admin: 07/24/18 10:07 Dose: 0.4 mg - Labs Labs: 07/24/18 14:41 07/24/18 14:41 Assessment and Plan - Assessment and Plan (Free Text) Assessment: A/P 83 yr old male with pmhx of HTN, DM, urinary retention.and BPH s/p TURP pt doing weel and f/c in place with clear urine Seeen by Dr. verdugo, cleared for discharge home today and f/u with Dr. Verdugo office on ,or tuesday to remove f/c and continue levaquin for 1 week D/W Dr. lozada, cleared for discharge home today Discharge plan discussed with patient son over the phone, who understands and agrees with plan patient instructed to call Dr. verdugo if he noticed bright red blood in urine
--- NOTE | 2018-07-24 22:15 | PCM.URO ---
Urology Progress Note - General General: No Complaints, Tolerating Diet - Subjective Abdominal Pain: No Flank Pain: No Nausea: No Vomiting: No Hematuria: No Dsypnea: No Chest Pain: No Fever & Chills: No - Objective Lab Studies: Reviewed Lab Results Last 24 Hours: Laboratory Results - last 24 hr 07/23/18 07/23/18 07/24/18 16:56 21:22 06:40 WBC RBC Hgb Hct MCV MCH MCHC RDW Plt Count MPV Neut % (Auto) Lymph % (Auto) Wise % (Auto) Eos % (Auto) Baso % (Auto) Neut # (Auto) Lymph # (Auto) Wise # (Auto) Eos # (Auto) Baso # (Auto) Sodium Potassium Chloride Carbon Dioxide Anion Gap BUN Creatinine Est GFR ( Amer) Est GFR (Non-Af Amer) POC Glucose (mg/dL) 198 H 239 H 218 H Random Glucose Calcium 07/24/18 07/24/18 07/24/18 11:24 14:41 14:41 WBC 9.8 RBC 4.25 L Hgb 11.5 L Hct 34.9 L MCV 82.2 MCH 27.0 MCHC 32.9 L RDW 13.6 Plt Count 230 MPV 9.1 Neut % (Auto) 69.9 Lymph % (Auto) 18.4 L Wise % (Auto) 7.6 Eos % (Auto) 3.4 Baso % (Auto) 0.7 Neut # (Auto) 6.9 Lymph # (Auto) 1.8 Wise # (Auto) 0.7 Eos # (Auto) 0.3 Baso # (Auto) 0.1 Sodium 134 Potassium 4.1 Chloride 101 Carbon Dioxide 26 Anion Gap 11 BUN 15 Creatinine 1.1 Est GFR ( Amer) > 60 Est GFR (Non-Af Amer) > 60 POC Glucose (mg/dL) 302 H Random Glucose 251 H D Calcium 8.2 L 07/24/18 17:10 WBC RBC Hgb Hct MCV MCH MCHC RDW Plt Count MPV Neut % (Auto) Lymph % (Auto) Wise % (Auto) Eos % (Auto) Baso % (Auto) Neut # (Auto) Lymph # (Auto) Wise # (Auto) Eos # (Auto) Baso # (Auto) Sodium Potassium Chloride Carbon Dioxide Anion Gap BUN Creatinine Est GFR ( Amer) Est GFR (Non-Af Amer) POC Glucose (mg/dL) 151 H Random Glucose Calcium Intake & Output: Intake & Output 07/24/18 07/24/18 07/25/18 06:59 18:59 06:59 Intake Total 1050 1200 Output Total 1100 2650 Balance -50 -1450 Intake: Intake, IV Amount 200 200 Left Antecubital 200 200 Oral 850 1000 Output: Urine 1100 26[address]-way Urethral 1100 2650 Other: # Bowel Movements 0 Vital Signs: Vital Signs - 24 hr 07/23/18 07/24/18 07/24/18 23:10 07:30 16:00 Temperature 98.4 F 98.3 F 98.4 F Pulse Rate 79 72 73 Respiratory 20 20 20 Rate Blood Pressure 123/66 117/80 125/69 O2 Sat by Pulse 96 94 L 98 Oximetry - Physical Exam Abdominal Exam: Soft, Non-Tender, Non-Distended Back: No CVA Tenderness Genitalia: Without Inflammation Urinary Catheter Draining Well: Yes Urine Color: Clear, Yellow Extremities: Normal: Bilateral - Male Phallus: Normal Scrotum: Normal Testes: Normal: Bilateral - Plan Catheter Care: Yes Ambulation - Out of Bed: Yes Intake & Output: Yes See Orders: Yes Additional Information: IMP: progressing well. p TURP. Rec/P: fernandez cath to leg bag. outpt f/u. Discussed w staff - Date & Time of Note Date: 07/24/18 Time: 11:30
--- NOTE | 2018-07-24 22:40 | CP.PCM.DIS ---
Provider - Provider Date of Admission: 07/21/18 15:16 Attending physician: Jasper Do MD Time Spent in preparation of Discharge (in minutes): 30 Hospital Course - Lab Results Lab Results: Micro Results 07/21/18 15:37 Urine,Clean Catch Urine Culture - Final Enterococcus Faecalis Most Recent Lab Values WBC 9.8 K/uL (4.8-10.8) 07/24/18 14:41 RBC 4.25 Mil/uL (4.40-5.90) L 07/24/18 14:41 Hgb 11.5 g/dL (12.0-18.0) L 07/24/18 14:41 Hct 34.9 % (35.0-51.0) L 07/24/18 14:41 MCV 82.2 fL (80.0-94.0) 07/24/18 14:41 MCH 27.0 pg (27.0-31.0) 07/24/18 14:41 MCHC 32.9 g/dL (33.0-37.0) L 07/24/18 14:41 RDW 13.6 % (11.5-14.5) 07/24/18 14:41 Plt Count 230 K/uL (130-400) 07/24/18 14:41 MPV 9.1 fL (7.2-11.7) 07/24/18 14:41 Neut % (Auto) 69.9 % (50.0-75.0) 07/24/18 14:41 Lymph % (Auto) 18.4 % (20.0-40.0) L 07/24/18 14:41 [place] % (Auto) 7.6 % (0.0-10.0) 07/24/18 14:41 Eos % (Auto) 3.4 % (0.0-4.0) 07/24/18 14:41 Baso % (Auto) 0.7 % (0.0-2.0) 07/24/18 14:41 Neut # (Auto) 6.9 K/uL (1.8-7.0) 07/24/18 14:41 Lymph # (Auto) 1.8 K/uL (1.0-4.3) 07/24/18 14:41 [place] # (Auto) 0.7 K/uL (0.0-0.8) 07/24/18 14:41 Eos # (Auto) 0.3 K/uL (0.0-0.7) 07/24/18 14:41 Baso # (Auto) 0.1 K/uL (0.0-0.2) 07/24/18 14:41 Sodium 134 mmol/L (132-148) 07/24/18 14:41 Potassium 4.1 mmol/L (3.6-5.2) 07/24/18 14:41 Chloride 101 mmol/L (98-107) 07/24/18 14:41 Carbon Dioxide 26 mmol/L (22-30) 07/24/18 14:41 Anion Gap 11 (10-20) 07/24/18 14:41 BUN 15 mg/dL (9-20) 07/24/18 14:41 Creatinine 1.1 mg/dL (0.8-1.5) 07/24/18 14:41 Est GFR ( Amer) > 60 07/24/18 14:41 Est GFR (Non-Af Amer) > 60 07/24/18 14:41 POC Glucose (mg/dL) 151 mg/dL (65-110) H 07/24/18 17:10 Random Glucose 251 mg/dL (75-110) H D 07/24/18 14:41 Hemoglobin A1c 10.1 % (4.2-6.5) H 07/22/18 13:57 Calcium 8.2 mg/dl (8.6-10.4) L 07/24/18 14:41 Blood Type A POSITIVE 07/21/18 12:58 Antibody Screen Negative 07/21/18 12:58 Discharge Plan - Discharge Medications Prescriptions: Docusate [Colace] 100 mg PO BID #60 cap levoFLOXacin [Levaquin] 500 mg PO DAILY #7 tab - Follow Up Plan Condition: GOOD Disposition: HOME/ ROUTINE Instructions: Heart Healthy Diet, How to Care for Your Fernandez Catheter, Male, Levofloxacin (Systemic), Transurethral Resection of the Prostate (DC), Fernandez Catheter, Male, Cystoscopy (DC) Additional Instructions: Please follow up with Dr. verdugo office on or Tuesday to remove fernandez cath Please continue medication as per med. rec. Please keep the fernandez to leg bag when waking and leg bag while sleeping If you noticed any bright blood in fernandez cath please call Dr. Verdugo Referrals: Jasper Do MD [Staff Provider] - Meghann Verdugo MD [Staff Provider] -
--- NOTE | 2018-07-25 08:40 | DS ---
DISCHARGE DIAGNOSES: 1. Benign prostatic hyperplasia, rule out malignant neoplasm of the prostate with obstructive uropathy. 2. Urinary tract infection with Enterococcus. 3. Type 2 diabetes. 4. Hypertension. 5. Hyperlipidemia. HOSPITAL COURSE: This is an 83-year-old [place] male with history of type 2 diabetes, hypertension, hyperlipidemia. The patient was evaluated by me over last few weeks. The patient was admitted postoperatively after cystoscopy, and the patient is feeling better, and he was found to have Enterococcus, and he is on ampicillin, and he is being discharged with outpatient followup. CONDITION UPON DISCHARGE: Stable. LABORATORY DATA: WBC at 9.8, hemoglobin 11.5, hematocrit 34.9, platelets 230. Sodium 130, potassium 4.1, chloride 101, bicarb 26, BUN current 15, creatinine 1.1, sugars are 151. PLAN: Monitor the patient. Discharge the patient to outpatient followup. Jasper Do MD
== END 2018-07-24 18:48 | disposition home or self-care (01) | DRG 713 ==
LOC: C.SDS 08:54 → C.6T 15:16
PROVIDERS: ADMIT Internal Medicine; ATTEND Internal Medicine
PROC: 0TJB8ZZ Inspection of Bladder, Via Natural or Artificial Opening Endoscopic (ICD-10-PCS; 2018-07-21)
PROC: 0T9B70Z Drainage of Bladder with Drainage Device, Via Natural or Artificial Opening (ICD-10-PCS; 2018-07-21)
PROC: 4A0D7BZ Measurement of Urinary Pressure, Via Natural or Artificial Opening (ICD-10-PCS; 2018-07-21)
PROC: 0VT08ZZ Resection of Prostate, Via Natural or Artificial Opening Endoscopic (ICD-10-PCS; principal; 2018-07-21 10:00)
DX: N40.1 Benign prostatic hyperplasia with lower urinary tract symptoms (principal); N13.8 Other obstructive and reflux uropathy; N39.0 Urinary tract infection, site not specified; N32.89 Other specified disorders of bladder; R33.8 Other retention of urine; B95.2 Enterococcus as the cause of diseases classified elsewhere; R31.9 Hematuria, unspecified; K62.89 Other specified diseases of anus and rectum; E11.9 Type 2 diabetes mellitus without complications; I10 Essential (primary) hypertension; E78.5 Hyperlipidemia, unspecified; E78.00 Pure hypercholesterolemia, unspecified; Z87.891 Personal history of nicotine dependence; Z79.4 Long term (current) use of insulin

== ENCOUNTER 2018-07-26 06:46 | Emergency (ER) | payer MEDICARE, MEDICAID ==
[2018-07-26 06:58] VITALS: O2SAT 98
[2018-07-26] MEDS ORDERED: Sodium Chloride 0.9% 500 ML IV ONE (07:57)
[2018-07-26 08:28] LABS: BASO # 0.1 K/uL (0.0-0.2); EOS # 0.3 K/uL (0.0-0.7); EOS % 4.4 % (0.0-4.0); HEMOGLOBIN 12.5 g/dL (12.0-18.0); LYMPH % 26.7 % (20.0-40.0); MEAN CELL VOLUME 82.7 fL (80.0-94.0); MEAN CORPUSCULAR HEMOGLOBIN 27.1 pg (27.0-31.0); MEAN CORPUSCULAR HGB CONC 32.7 g/dL (33.0-37.0); MEAN PLATELET VOLUME 8.7 fL (7.2-11.7); MONO # 0.4 K/uL (0.0-0.8); NEUT # 4.5 K/uL (1.8-7.0); NEUT % 61.9 % (50.0-75.0); RBC 4.62 Mil/uL (4.40-5.90); RED CELL DISTRIBUTION WIDTH 13.4 % (11.5-14.5); WHITE BLOOD COUNT 7.4 K/uL (4.8-10.8)
[2018-07-26 08:42] LABS: ALB/GLOB RATIO 1.1 (1.0-2.1); ALBUMIN 3.9 g/dL (3.5-5.0); ALT/SGPT 10 U/L (21-72); AST/SGOT 25 U/L (17-59); BLOOD UREA NITROGEN 17 mg/dL (9-20); CALCIUM 8.8 mg/dl (8.6-10.4); GFR NON-AFRICAN AMERICAN > 60
[2018-07-26 08:51] LABS: CK-MB 0.31 ng/mL (0.0-3.38)
--- NOTE | 2018-07-26 08:59 | CT ---
Date of service: 07/26/2018 PROCEDURE: CT HEAD WITHOUT CONTRAST. HISTORY: dizziness COMPARISON: None available. TECHNIQUE: Axial computed tomography images were obtained through the head/brain without intravenous contrast. Radiation dose: Total exam DLP = 1026.25 mGy-cm. This CT exam was performed using one or more of the following dose reduction techniques: Automated exposure control, adjustment of the mA and/or kV according to patient size, and/or use of iterative reconstruction technique. FINDINGS: HEMORRHAGE: No intracranial hemorrhage. BRAIN: No mass effect or edema. Scattered focal lucencies in the subcortical and periventricular white matter suggestive for chronic microvascular ischemic change. Bilateral basal ganglia calcifications. Diffuse generalized parenchymal atrophy. Focal hypodensity in the left caudate head suggestive for a small lacunar infarct. Focal hypodensities in the right cerebellum suggestive for chronic infarcts. VENTRICLES: Unremarkable. No hydrocephalus. CALVARIUM: Unremarkable. PARANASAL SINUSES: Mucosal retention cysts and/or polyps in left maxillary sinus. Mucosal retention cysts and/or polyps seen within the anterior ethmoid air cells frontal sinus. MASTOID AIR CELLS: Unremarkable as visualized. No inflammatory changes. OTHER FINDINGS: None. IMPRESSION: Diffuse generalized parenchymal atrophy. Chronic microvascular ischemic change. Focal hypodensity in the left caudate head which may represent a lacunar infarct. Focal hypodensities in the right cerebellum suggestive for chronic infarcts. Sinus mucosal disease as above. If symptoms persists, consider correlation with MRI.
--- NOTE | 2018-07-26 09:10 | C.PDOC ---
History Of Present Illness 83 y/o male,w/PMhx of diabetes,HTN, hypercholesterolemia, and BPH, brought to ER by EMS for evaluation of dizziness which occurred today. Patient states that he woke up and went to the bathroom. Patient reports that he was straining and trying to have a bowel movement. Then, he went to the TV room where he sat down and felt lightheaded. He called for an ambulance. When EMS arrived, they helped him go to the bathroom and have a bowel movement. He notes that he was recently admitted in [facility] and he had TURP performed by Dr.Y Verdugo on 07/21/18. He has an indwelling fernandez catheter. Denies having having CP, SOB, palpit ations, sensation of room spinning around him, visual changes, slurred speech,facial droop, extremity weakness, and sensory changes. Time Seen by Provider: 07/26/18 07:12 Chief Complaint (Nursing): Weakness/Neurological Deficit History Per: Environmental Field Technician History/Exam Limitations: no limitations Onset/Duration Of Symptoms: Hrs Current Symptoms Are (Timing): Still Present Severity: Moderate Past Medical History Reviewed: Historical Data, Nursing Documentation, Vital Signs Vital Signs: Last Vital Signs Temp 97.5 F L 07/26/18 06:53 Pulse 71 07/26/18 06:53 Resp 20 07/26/18 06:53 BP 136/75 07/26/18 06:53 Pulse Ox 98 07/26/18 06:53 - Medical History PMH: HTN, Hypercholesterolemia Other Surgeries: Hx of surgeries - [facility] Procedures DRAINAGE OF BLADDER WITH DRAINAGE DEVICE, VIA OPENING (07/21/18) INSPECTION OF BLADDER, ENDO (07/21/18) MEASUREMENT OF URINARY PRESSURE, VIA OPENING (07/21/18) RESECTION OF PROSTATE, ENDO (07/21/18) Family History: States: No Known Family Hx - Social History Hx Alcohol Use: No Hx Substance Use: No - Immunization History Hx Tetanus Toxoid Vaccination: No Hx Influenza Vaccination: No Hx Pneumococcal Vaccination: No Review Of Systems Except As Marked, All Systems Reviewed And Found Negative. Constitutional: Negative for: Fever, Chills Eyes: Negative for: Vision Change Cardiovascular: Negative for: Chest Pain Respiratory: Negative for: Shortness of Breath Neurological: Positive for: Dizziness. 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) Cardiovascular: Rhythm Regular Respiratory: Normal Breath Sounds, No Rales, No Rhonchi, No Wheezing Gastrointestinal/Abdominal: Normal Exam, Soft, No Tenderness, No Guarding, No Rebound Male Genital: Other (indwelling fernandez catheter) Neurological/Psych: Oriented x3, Normal Speech, Normal Cranial Nerves, Normal Motor, Normal Sensation ED Course And Treatment - Laboratory Results Result Diagrams: 07/26/18 08:22 07/26/18 08:22 Lab Results: Troponin I < 0.0120 ng/mL (0.00-0.120) 07/26/18 08:22 Total Bilirubin 0.4 mg/dL (0.2-1.3) 07/26/18 08:22 AST 25 U/L (17-59) 07/26/18 08:22 ALT 10 U/L (21-72) L D 07/26/18 08:22 Alkaline Phosphatase 86 U/L (38-126) 07/26/18 08:22 Total Protein 7.4 g/dL (6.3-8.3) 07/26/18 08:22 Albumin 3.9 g/dL (3.5-5.0) 07/26/18 08:22 Globulin 3.5 gm/dL (2.2-3.9) 07/26/18 08:22 Albumin/Globulin Ratio 1.1 (1.0-2.1) 07/26/18 08:22 ECG: Interpreted By Me, Viewed By Me ECG Rhythm: Sinus Rhythm Interpretation Of ECG: NSR with normal axises and no acute ST/ T wave changes Rate From EC O2 Sat by Pulse Oximetry: 98 (RA) Pulse Ox Interpretation: Normal - CT Scan/US CT-Head Other Rad Studies (CT/US): Read By Radiologist, Radiology Report Reviewed CT/US Interpretation: Date of service: 07/26/2018. PROCEDURE: CT HEAD WITHOUT CONTRAST. HISTORY: dizziness. COMPARISON: None available. TECHNIQUE: Axial computed tomography images were obtained through the head/brain without intravenous contrast. Radiation dose: Total exam DLP = 1026.25 mGy-cm. This CT exam was performed using one or more of the following dose reduction techniques: Automated exposure control, adjustment of the mA and/or kV according to patient size, and/or use of iterative reconstruction technique. FINDINGS: HEMORRHAGE: No intracranial hemorrhage. BRAIN: No mass effect or edema. Scattered focal lucencies in the subcortical and periventricular white matter suggestive for chronic microvascular ischemic change. Bilateral basal ganglia calcifications. Diffuse generalized parenchymal atrophy. Focal hypodensity in the left caudate head suggestive for a small lacunar infarct. Focal hypodensities in the right cerebellum suggestive for chronic infarcts. HONG TRICLES: Unremarkable. No hydrocephalus. CALVARIUM: Unremarkable. PARANASAL SINUSES: Mucosal retention cysts and/or polyps in left maxillary sinus. Mucosal retention cysts and/or polyps seen within the anterior ethmoid air cells frontal sinus. MASTOID AIR CELLS: Unremarkable as visualized. No inflammatory changes. OTHER FINDINGS: None. IMPRESSION: Diffuse generalized parenchymal atrophy. Chronic microvascular ischemic change. Focal hypodensity in the left caudate head which may represent a lacunar infarct. Focal hypodensities in the right cerebellum suggestive for chronic infarcts. Sinus mucosal disease as above. If symptoms persists, consider correlation with MRI. Progress Note: Labs, UA, ECG, CT-Head, and X-Ray- Obs Series ordered. Patient treated with IV Fluids. Disposition Counseled Patient/Family Regarding: Studies Performed, Diagnosis, Need For Followup - Disposition Referrals: Jaspre Do MD [Staff Provider] - Meghann Verdugo MD [Staff Provider] - Disposition: AGAINST MEDICAL ADVICE Disposition Time: 10:50 Condition: STABLE Additional Instructions: FOLLOW UP WITH YOUR DOCTOR IN 1-2 DAYS, AND WITH YOUR UROLOGIST TOMORROW SCHEDULED CONTINUE YOUR ANTIBIOTICS RETURN TO EMERGENCY ROOM IMMEDIATELY IF YOUR SYMPTOMS BECOME WORSE Instructions: Dizziness, Nonvertigo, (DC), Leaving Against Medical Advice Forms: [facility] (Palauan), (AMA) Informed Refusal Print Language: KOREAN - Clinical Impression Clinical Impression: Dizziness, Lacunar infarction, Left against medical advice, Cerebral infarction, chronic - Scribe Statement The provider has reviewed the documentation as recorded by the Jesus Garsia Provider Attestation: All medical record entries made by the Yulissaibe were at my direction and personally dictated by me. I have reviewed the chart and agree that the record accurately reflects my personal performance of the history, physical exam, medical decision making, and the department course for this patient. I have also personally directed, reviewed, and agree with the discharge instructions and disposition.
[2018-07-26 10:35] VITALS: RESP 18
[2018-07-26 10:37] LABS: SQUAMOUS EPITHIAL 1 /hpf (0-5); URINE BACTERIA RARE (<OCC); URINE BILIRUBIN NEGATIVE (NEGATIVE); URINE BLOOD 3+ (NEGATIVE); URINE CLARITY Hazy (Clear); URINE COLOR Yellow (YELLOW); URINE GLUCOSE (UA) NORMAL (Normal); URINE LEUKOCYTE ESTERASE 2+ Leu/uL (Negative); URINE PROTEIN 3+ mg/dL (NEGATIVE); URINE UROBILINOGEN NORMAL mg/dL (0.2-1.0)
--- NOTE | 2018-07-26 10:45 | RAD ---
Date of service: 07/26/2018 PROCEDURE: Radiographs of the chest and abdomen (obstructive series) HISTORY: constipation COMPARISON: None available. TECHNIQUE: AP radiograph of the chest, with upright and supine radiographs of the abdomen. FINDINGS: CHEST: Heart size appears within normal limits. Atherosclerotic calcifications of the aorta. No focal consolidation, significant pleural effusion, or definite pneumothorax. Please note that chest x-ray has limited sensitivity for the detection of pulmonary masses. ABDOMEN AND PELVIS: Nonobstructive bowel gas pattern. Mild constipation no definite free air. Osseous demineralization. Degenerative changes of the thoracic and lumbar spine. Acromioclavicular arthropathy. Glenohumeral joint space narrowing. IMPRESSION: Mild constipation.
[2018-07-26 11:53] VITALS: BP 130/71; PULSE 75; TEMP 97
--- NOTE | 2018-07-27 12:37 | CARD ---
APPROVED REPORT Date of service: 07/26/2018 EKG Measurement Heart [id number] <Conclusion> Normal sinus rhythm Normal ECG
== END 2018-07-26 12:04 | disposition left against medical advice (07) ==
LOC: C.ER 06:46
DX: I63.81 Other cerebral infarction due to occlusion or stenosis of small artery (principal); E78.00 Pure hypercholesterolemia, unspecified; E11.9 Type 2 diabetes mellitus without complications; N40.0 Benign prostatic hyperplasia without lower urinary tract symptoms; I10 Essential (primary) hypertension